=== PATIENT | male | born 1990 | race Caucasian/White ===

== ENCOUNTER 2022-05-11 15:42 | Emergency (ER) | payer SELFPAY ==
[~2022-05-11] VITALS: Ht 175.3 cm; Wt 60.8 kg
[2022-05-11 15:51] VITALS: BP 135/69
--- NOTE | 2022-05-11 16:02 | NUR ---
labs drawn and given to lab
--- NOTE | 2022-05-11 16:05 | NUR ---
pt returned from xray to lobby via wheelchair
[2022-05-11 16:20] LABS: BASOPHILS % (AUTO) 0.3 % (0.0-2.0); EOSINOPHILS # (AUTO) 0.1 K/uL (0-0.4); EOSINOPHILS % (AUTO) 2.6 % (0.0-4.0); HEMOGLOBIN 15.2 g/dL (12.0-18.0); LYMPHOCYTES # (AUTO) 2.4 K/uL (2.0-11.5); LYMPHOCYTES % (AUTO) 46.6 % (20.5-51.1); MEAN CORPUSCULAR HEMOGLOBIN 30 pg (27-31); MEAN CORPUSCULAR HGB CONC 33 g/dL (33-37); MEAN CORPUSCULAR VOLUME 89.4 fL (80-94); MONOCYTES # (AUTO) 0.5 K/uL (0.8-1.0); MONOCYTES % (AUTO) 8.9 % (1.7-9.3); NEUTROPHILS # (AUTO) 2.2 K/uL (1.8-7.7); NEUTROPHILS % (AUTO) 41.6 % (42.2-75.2); PLATELET COUNT (AUTO) 200 K/uL (140-450); RED BLOOD CELL COUNT(AUTO) 5.15 MIL/uL (4.20-6.10); WHITE BLOOD COUNT (AUTO) 5.2 K/uL (4.8-10.8)
[2022-05-11 16:39] LABS: ANION GAP 8.5 (8-16); CARBON DIOXIDE 30.1 mmol/L (21-32); CREATININE 0.9 mg/dL (0.6-1.3); POTASSIUM 3.6 mmol/L (3.5-5.1)
[2022-05-11] MEDS ORDERED: HYDR-635 PO (17:18)
--- NOTE | 2022-05-11 17:41 | NUR ---
PT SEEN BY DR ADAMSON, NO NURSING INTERVENTIONS PROVIDED
--- NOTE | 2022-05-11 17:42 | NUR ---
Patient discharged with v/s stable. Written and verbal after care instructions ABOUT CHEST WALL PAIN AND LIVING WITH ANXIETY given and explained. Patient alert, oriented and verbalized understanding of instructions. Ambulatory with steady gait. All questions addressed prior to discharge. ID band removed. Patient advised to follow up with PMD. Rx of HYDROXYZINE given. Patient educated on indication of medication including possible reaction and side effects. Opportunity to ask questions provided and answered.
== END 2022-05-11 17:42 | disposition home or self-care (01) ==
LOC: MED 15:42
DX: R07.89 Other chest pain (principal); F41.9 Anxiety disorder, unspecified; Z79.899 Other long term (current) drug therapy
CPT/HCPCS: 36415; 71045; 80048; 84484; 85025; 93005; 99285